=== PATIENT | female | born 1990 | race Caucasian/White ===

== ENCOUNTER → 2019-11-27 11:06 | Outpatient (BNVA) | payer OTHER, SELFPAY | PROVIDERS: PCP Hospitalist; Referring Provider Hospitalist; Visit Provider Advanced Practice Midwife | DX: T83.84XA Pain due to genitourinary prosthetic devices, implants and grafts, initial encounter (principal); R10.2 Pelvic and perineal pain | CPT/HCPCS: 99213 ==

== ENCOUNTER 2019-12-11 16:08 | Outpatient (REF) | payer OTHER, SELFPAY ==
--- NOTE | 2019-12-11 16:13 | US_ITS ---
EXAMINATION: US PELVIS CLINICAL INFORMATION: Pain due to genitourinary prosthetic devices, implants and grafts. COMPARISON: None TECHNIQUE: Transabdominal ultrasound of the pelvis is performed. Patient refused transvaginal ultrasound. FINDINGS: UTERUS: The uterus is anteverted, anteflexed and measures 8.9 x 3.3 x 4.0 cm. IUD is within the endometrial canal in good position. Endometrial thickness is not well visualized. The uterus is smooth in contour and has normal myometrial echogenicity. No visible fibroid. ADNEXA: Both ovaries are visualized. There is normal color flow to the adnexa. There is no ovarian torsion. There is no pelvic ascites or fluid collection. Right ovary measures 3.4 x 2.6 x 3.1 cm and volume 14.4 mL. There is anechoic cyst measuring 1.9 x 1.6 x 1.8 cm. Left ovary measures 2.3 x 1.8 x 2.0 cm and volume 4.3 mL. US/US pelvic complete IMPRESSION: Unremarkable uterus. There is an IUD well located in the endometrial canal. Small right ovarian cyst measuring 1.9 cm. Left ovary is unremarkable.
== END 2019-12-11 16:09 | disposition home or self-care (01) ==
LOC: HO.US 16:08
PROVIDERS: Visit Provider Advanced Practice Midwife
DX: T83.84XA Pain due to genitourinary prosthetic devices, implants and grafts, initial encounter (principal)
CPT/HCPCS: 76856

== ENCOUNTER → 2019-12-22 11:03 | Outpatient (BNVA) | payer OTHER, SELFPAY | PROVIDERS: PCP Hospitalist; Visit Provider Advanced Practice Midwife | DX: Z76.89 Persons encountering health services in other specified circumstances (principal) ==

== ENCOUNTER 2021-07-29 09:35 | Outpatient (REF) | payer OTHER, SELFPAY ==
--- NOTE | ~2021-07-29 | US_ITS ---
EXAMINATION: OBSTETRICAL ULTRASOUND, FIRST TRIMESTER HISTORY: 30-year-old with unknown LMP NT screening COMPARISON: None in this TECHNIQUE: Real time transabdominal imaging with color and M-mode Doppler. FINDINGS: A single, live IUP CRL of 46.6 mm c/w 11.4wks is noted. Heart Rate: 163 beats per minute. Normal yolk sac seen. NT was 1.1.mm. NB Present The embryo appears sonographically wnl for this GA. Both maternal ovaries are seen and appear normal. GESTATIONAL AGE: 1. Established GA: N/A wks 2. GA from AUA: 11.4 wks ESTIMATED DATE OF DELIVERY: 1. Established WINNIE: N/A 2. WINNIE from [facility]: 02/13/2022 US/US OB 1T nuc measure IMPRESSION: 1. A single live IUP 2. CRL consistent with 11.4 weeks consistent with WINNIE of 02/13/2022 3. Normal NT MFM Consultation: I reviewed the ultrasound findings along with significance of NT measurement. The NT of less than 3mm is generally reassuring. However, the sensitivity for T21 detection is only 60%. I reviewed the availability of serum aneuploidy screening which includes cell-free DNA and placental protein based tests. I discussed the sensitivity, false-positive rate, and other limitations associated with each test. I also reviewed the availability of invasive diagnostic tests that are associated small but definite risk of miscarriage. We also reviewed the differences between screening tests and diagnostic tests. After our discussion, she opted for the First trimester screening that is based on cell-free DNA or non-invasive testing (NIPT). The result will be faxed to your office in approximately 7 days. A follow up at 18 weeks for survey has been scheduled. Thank you very much for this referral. Total time 20 minutes. The time spent was devoted to counseling the patient about the disease and diagnosis, coordinating care including reviewing her records, pertinent lab data and studies, as well as discussing diagnostic evaluation and workup, plan therapeutic interventions and future disposition of care. This includes any additional research needed to obtain further information in formulating the plan of care of this patient. This note was generated with a voice recognition program. Please excuse any errors which may have been overlooked during my review of this note. Sometimes these errors may affect the content or meaning of a given sentence.
== END 2021-07-29 09:36 | disposition home or self-care (01) ==
LOC: HO.US 09:35
PROVIDERS: Visit Provider Advanced Practice Midwife
DX: Z34.91 Encounter for supervision of normal pregnancy, unspecified, first trimester (principal); Z3A.11 11 weeks gestation of pregnancy
CPT/HCPCS: 76813

== ENCOUNTER 2022-10-17 12:40 | Outpatient (AMB) | payer OTHER, SELFPAY ==
[2022-10-17 12:50] VITALS: BMI 46.7
--- NOTE | 2022-10-17 12:50 | A.OFFVIS_ITS ---
Intake VS Expanded 10/17/22 12:50 10/24/22 22:36 Height 5 ft 5 ft Weight 238 lb 15.697 oz 239 lb BMI 46.7 46.7 Intake Visit Reasons: Obesity Allergies amoxicillin [AMOXICILLIN] Allergy (Intermediate, Verified 07/19/22 16:15) ANGIOEDEMA, hives PT UNSURE IF ALLERGIC TO LOBSTER OR AMOXICILLIN Allergy (Intermediate, Uncoded 07/19/22 16:15) FACIAL SWELLING HPI Nutrition Presentation Details Pt presents for MNT for morbid obesity . Pt was referred by Vern Abbott, Pt reports having an 8 month and is breast feeding Participates from [facility] program Pt reports having lost weight throughout related to GI issues however gaining 30 + lbs after delivery Reports currently having meal routine, water or milk 1% milk 8-10 B: oatmeal milk packet ( 2 flavore d blueberry and cream or banana ), water, or juice or tea or coffee honey and lemon juice hasbrown eggs skips : snack on empty jez foods or fruit or dry cereal D: pasta/ground beef , rice/beans/chicken , mashed potato, chicken or beef, water or milk food frequency fruit0-1/d non starchy veg 0-2 serving/d starches > 20 serving/d dairy: 4-5 serving/d protein foods : 10 oz/d beverages:mlk, water, juice -low in sugar physical activity: daily life activities ETOH/SMoking: denies takes vitamins UQW-Bfobndc-Qb.Jeor Equation Height 5 ft Weight 239 lb Resting Metabolic Rate 1721.98 Calculated Activity Level Sedentary Calories Needed to Maintain Weight 2066.38 Diagnosis Nutrition problem #1 overweight/obesity As related to (etiology) #1 lack of nutrit education As evidenced by (sign/symptom) #1 high BMI (46.7 10/2022) and knowledge deficit of diet Monitoring/Goals Nutrition problem monitoring level of knowledge/skill and weight Nutrition goal/outcome wt loss 5lbs in 2 months Outcome progress verbalized understanding Most Recent Diabetes Results: No Data to Display [facility] Medical History Anemia Escobar's palsy Carpal tunnel syndrome Depression GERD (gastroesophageal reflux disease) Left knee injury Migraine headache without aura Surgical History Hx of cholecystectomy Family History Mother Lupus Maternal Grandmother Breast cancer Paternal Uncle Prostate cancer Paternal Aunt Breast cancer Bone cancer Social History Housing: House Alcohol intake: never Patient Tobacco Use Status: Never used Tobacco e-Cigarette/Vaping Use: Currently Using Substance Use Type: Marijuana service: No Current occupational status: employed Current occupation: Business Signal Intelligence Analyst Gender identity: Female Cognitive needs: No Hearing needs: No Vision needs: No Female Reproductive History Menstrual Age of Menarche: 12 Assessment & Plan Assessment & Plan (1) Morbid obesity with BMI of 45.0-49.9, adult: Code(s): E66.01 - Morbid (severe) obesity due to excess calories; Z68.42 - Body mass index [BMI] 45.0-49.9, adult Plan: wt: 108 kg Est kcal needs as per MSJ: 2000 (40% carb, 30% protein/fat) Est fluid needs as per 25-30 ml/d: 2700 Est prot per day as per 1 g/kg bw: 108 Recommend fiber intake : 8-10 g per day and gradually increase to 25-28 g per day for women and 35-38 g for men or as tolerated Recommend sodium intake per day : less than 2000 mg Educated patient on: ( R = reviewed V = verbalizes understanding N/R = needs review N/A = not applicable * Food sources of carbohydrate, adequate serving sizes and its role in various health conditions: R * Differences between complex carbohydrates a simple carbohydrates, role of fiber in diet: R * Differences between types of fats and role in diet (mono on saturated fat fatty acids, saturated fatty acids, trans fats): R * Food sources of sodium in salt and healthy modifications for heart health in kidney health: R * Vitamins and minerals: R * Healthy plate method concept: R * Physical activity: Benefits a precaution: R Patient Instructions: Have a meal replacement at lunch time Follow healthy plate method at dinner - see meal plan printed Coding Level of Care Code Nutr Indiv Intake (82771) Diagnoses Morbid obesity with BMI of 45.0-49.9, adult E66.01; Z68.42 Time Spent (min) 30
[2022-10-24 22:36] VITALS: BMI 46.7
== END 2022-10-17 13:20 | disposition home or self-care (01) ==
PROVIDERS: PCP Hospitalist; Visit Provider Dietitian, Registered
DX: E66.01 Morbid (severe) obesity due to excess calories (principal); Z68.42 Body mass index [BMI] 45.0-49.9, adult

== ENCOUNTER → 2022-10-17 12:40 | Outpatient (BNVA) | payer OTHER, SELFPAY | PROVIDERS: PCP Hospitalist; Visit Provider Dietitian, Registered | DX: E66.01 Morbid (severe) obesity due to excess calories (principal); Z68.42 Body mass index [BMI] 45.0-49.9, adult; Z71.3 Dietary counseling and surveillance | CPT/HCPCS: 97802 ==

== ENCOUNTER 2022-11-30 10:29 | Outpatient (REF) | payer OTHER, SELFPAY ==
[2022-11-30 14:19] LABS: CT PCR NOT DETECTED (Not Detect.); NG PCR NOT DETECTED (Not Detect.)
[2022-12-01 14:10] LABS: BV Int Neg Control Negative (Negative); BV Int Pos Control Positive (Positive)
[2022-12-05 18:18] LABS: HPV mRNA E6/E7 rflx Not Detected (Not Detected)
== END 2022-11-30 10:30 | disposition home or self-care (01) ==
LOC: HO.LNP 10:29
PROVIDERS: PCP Hospitalist; Visit Provider Advanced Practice Midwife
DX: Z01.419 Encounter for gynecological examination (general) (routine) without abnormal findings (principal); M54.9 Dorsalgia, unspecified; E66.01 Morbid (severe) obesity due to excess calories; Z87.42 Personal history of other diseases of the female genital tract; Z78.9 Other specified health status; Z68.42 Body mass index [BMI] 45.0-49.9, adult; Z79.899 Other long term (current) drug therapy
CPT/HCPCS: 0353U; 87480; 87510; 87624; 87660; 88142; 99395

== ENCOUNTER 2022-11-30 10:29 | Outpatient (AMB) | payer OTHER, SELFPAY ==
--- NOTE | 2022-11-30 10:40 | A.OFFVIS_ITS ---
Intake Vital Signs 11/30/22 10:46 Height 5 ft Weight 235 lb BMI 45.9 Intake Visit Reasons: EYEDOTTER annual exam Intake Note: random sharp vaginal pains Nutrition Associate Required: No Information Interpreted: non-clinical & clinical Movie Actor: Movie Actor Present (Sharlene) Allergies amoxicillin [AMOXICILLIN] Allergy (Intermediate, Verified 11/30/22 10:49) ANGIOEDEMA, hives PT UNSURE IF ALLERGIC TO LOBSTER OR AMOXICILLIN Allergy (Intermediate, Uncoded 11/30/22 10:49) FACIAL SWELLING Medication List - Last Reconciled 11/30/22 by Meghan Quispe CNM PNV,calcium 72-iron,carb-folic 29 mg iron- 1 mg 1 tab PO DAILY 90 days Is last menstrual period known: Yes Last menstrual period: 11/18/22 Post menopausal: No HPI EYEDOTTER annual exam HPI Details Patient states she did not know why she was here she does not know when the appointment was made or how it got made she was not prepared for an exam but is open to having a pelvic exam now that she is here. States she has seen this provider many times before at previous deliveries she delivered her last baby 9 months ago at [facility] she states she is still breast-feeding she uses condoms 100% for the most part for control she has missed a few but not since her last period she finds them better than other methods of control. She sometimes has malodor and pain after her. And she thought it was related to the particular tampons she was using. She is not interested in control other than condoms right now. She was just placed in the room but she needs to go quickly to seed cone picker her children. 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 Gender identity: Female Cognitive needs: No Hearing needs: No Vision needs: No Female Reproductive History Menstrual Age of Menarche: 12 Duration of menses: 6-7 days Date of last menstrual period: 11/18/22 control method: condoms Total pregnancies: 5 Full term: 3 Number of Living Children: 3 Ab induced: 2 Date of last pap smear: 07/31/18 (negative) History of abnormal pap smear: Yes (2012 2015 CIN1 2014 ASCUS ) Physical Exam Vital Signs: BMI result Body Mass Index 45.9 Const Other: Obesity noted patient founded very painful to lie on her back for the exam and had it hard time straightening up when getting up from the table states she has had back pain since an injury and never had it taken care of years ago. She says she has gained a lot of weight since having her last baby as well. General: healthy appearing, comfortable, no acute distress, well developed and alert Nutritional Appearance: average body habitus Orientation/consciousness: patient oriented x3 HEENT Head: Yes normocephalic Chest Other: Patient declined breast exam today. Other: Patient was tense with exam but was mostly because of her back pain once she was having the pelvic she was a little bit more relaxed. Speculum exam within normal limits cervical mucus and vaginal discharge appeared very healthy and normal cervix pink healthy normal. Cervix long close thick mobile nontender uterus anteverted to midposition nontender not enlarged good tone with Kegel though she did need to focus on it. States she has trouble with her bladder I urged her to do several Kegel exercises a day. General: Yes bladder normal to palpation External Female Exam: normal external appearance and normal appearance of the urethra Speculum Exam - Vagina: normal appearance of the vagina, normal palpation and normal vaginal discharge Speculum Exam - Cervix: normal appearance of the cervix, normal palpation and nontender Bimanual exam- vagina & uterus: normal bimanual exam, normal palpation, uterine size normal, bladder normal to palpation, consistency normal, normal palpation, uterine mobility normal, uterine shape normal, No Cervical tenderness present, non-tender and no cervical motion tenderness Bimanual Exam- Adnexa, other: normal adnexae, no masses, normal and No adnexal tenderness Neuro General: patient oriented x3 Assessment & Plan Assessment & Plan (1) Back pain: Code(s): M54.9 - Dorsalgia, unspecified (2) Morbid obesity with BMI of 45.0-49.9, adult: Code(s): E66.01 - Morbid (severe) obesity due to excess calories; Z68.42 - Body mass index [BMI] 45.0-49.9, adult (3) Women's annual routine gynecological examination: Code(s): Z01.419 - Encounter for gynecological examination (general) (routine) without abnormal findings (4) Hx of abnormal cervical Pap smear: Comment: History of ORIANA 1 and ASCUS. Last Pap negative in 2019. Pap done 11/30/2022 Code(s): Z87.42 - Personal history of other diseases of the female genital tract (5) Uses condoms as primary control method: Code(s): Z78.9 - Other specified health status Plan -----Discussed in this visit the following: healthy balanced diet, regular and consistent exercise, getting recommended health screens, doing the best she can for her particular health concerns, kegel exercises, pap smear screening and followup recommendations, mammography screening and SBE, normal changes in cycles in her life stage--- .----I reviewed available options for Control Methods and their associated side effect profiles. In particular, we discussed the method most of interest to her. I suggested some pelvic tilt and gentle stretches for her back and some she found helpful in some she did not think she would be able to do or could do or wanted to do so I placed a physical therapy referral for her she is kind of between primary care providers because she says her provider left. If any other follow-up is needed for her back she would need to explore with primary care. She says she had a nutrition referral to work on discussing losing weight and she had her reschedule that appointment this week because a with something with her children. Discussed diet in general she is trying to make healthier choices and knows that carbs can be problematic ?but they are so good . She is working on it. She is happy with condom use for now, and knows where possible free condoms might be available however she says they do not suit. Orders: Orders CT NG by PCR Today Z20.2 - Contact with and (suspected) exposure to infections with a predominantly sexual mode of transmission PT Evaluation and Treatment Today E66.01 - Morbid (severe) obesity due to excess calories, M54.9 - Dorsalgia, unspecified, Z01.419 - Encounter for gynecological examination (general) (routine) without abnormal findings, Z68.42 - Body mass index [BMI] 45.0-49.9, adult Bacterial Vaginosis Panel Today Z20.2 - Contact with and (suspected) exposure to infections with a predominantly sexual mode of transmission Pap Smear Today Z12.4 - Encounter for screening for malignant neoplasm of cervix Coding Level of Care Code Est Pt Prev Care [id number]) Diagnoses Back pain M54.9 Morbid obesity with BMI of 45.0-49.9, adult E66.01; Z68.42 Women's annual routine gynecological examination Z01.419 Hx of abnormal cervical Pap smear Z87.42 Uses condoms as primary control method Z78.9
[2022-11-30 10:46] VITALS: BMI 45.9
== END 2022-11-30 11:22 | disposition home or self-care (01) ==
PROVIDERS: PCP Hospitalist; Visit Provider Advanced Practice Midwife
DX: Z01.419 Encounter for gynecological examination (general) (routine) without abnormal findings (principal); M54.9 Dorsalgia, unspecified; E66.01 Morbid (severe) obesity due to excess calories; Z68.42 Body mass index [BMI] 45.0-49.9, adult; Z87.42 Personal history of other diseases of the female genital tract
CPT/HCPCS: 99395